=== PATIENT | female | born 1940 | race Two or more races ===

== ENCOUNTER → 2018-06-11 | Outpatient (CLI) | payer MEDICARE, BC | END | disposition home or self-care (01) | LOC: Rad HDHVI 08:40 | PROVIDERS: ATTEND Internal Medicine Cardiovascular Disease | DX: I08.1 Rheumatic disorders of both mitral and tricuspid valves (principal); I65.23 Occlusion and stenosis of bilateral carotid arteries; I10 Essential (primary) hypertension | CPT/HCPCS: 93306; 93880 ==

== ENCOUNTER → 2018-06-25 | Outpatient (CLI) | payer MEDICARE, BC ==
[~2018-06-25] VITALS: Ht 160 cm; Wt 57.6 kg
[~2018-06-25] MED LIST: ADENOSINE 48 MG in GIVE UN-DILUTED 0 ML IV ONE; ADENOSINE 90 MG/30 ML INJ IV ONE
[2018-06-25 12:06] LABS: Basophils # (auto) 0.1 uL; Basophils % (auto) 1.3 % (0.0-2.0); Eosinophils # (auto) 0.1 uL; Eosinophils % (auto) 1.3 % (0.0-7.0); Hematocrit 42.4 % (36.0-46.0); Hemoglobin 14.2 g/dL (12.2-16.2); Lymphocytes # (auto) 1.6 uL; Lymphocytes % (auto) 24.6 % (10.0-50.0); Mean Corpuscular Hgb Conc. 33.5 g/dL (32.0-36.0); Mean Corpuscular Volume 98.3 fL (80.0-100.0); Monocytes # (auto) 0.4 uL; Monocytes % (auto) 6.3 % (0.0-12.0); Neutrophils # (auto) 4.2 uL; Neutrophils % (auto) 66.5 % (37.0-80.0); Nucleated Red Blood Cells % 0.3 %; Platelet Count (auto) 224 10^3/uL (140-450); Red Blood Cells 4.32 10^6/uL (4.0-5.20); White Blood Cell 6.3 10^3/uL (4.4-10.8)
[2018-06-25 12:23] LABS: Urine Blood Negative /uL (Negative); Urine Specific Gravity 1.018 (1.001-1.035)
[2018-06-25 12:32] LABS: Free T4 (Free Thyroxine) 1.24 ng/dL (0.89-1.76)
[2018-06-25 12:36] LABS: Potassium 3.7 mmol/L (3.5-5.1)
[2018-06-25 12:55] LABS: Albumin 4.1 g/dL (3.4-5.0); BUN/Creatinine Ratio 28.9; Bilirubin, Total 0.7 mg/dL (0.2-1.0); Calcium 9.2 mg/dL (8.5-10.1); Total Protein 7.5 g/dL (6.4-8.2)
== END | disposition home or self-care (01) ==
LOC: Rad HDHVI 08:08
PROVIDERS: ATTEND Internal Medicine Cardiovascular Disease
DX: I10 Essential (primary) hypertension (principal); G20 Parkinson's disease; E03.9 Hypothyroidism, unspecified; E11.9 Type 2 diabetes mellitus without complications; E55.9 Vitamin D deficiency, unspecified; D51.9 Vitamin B12 deficiency anemia, unspecified; N39.0 Urinary tract infection, site not specified
CPT/HCPCS: 36415; 78452; 80053; 80061; 81003; 82306; 82607; 83036; 84439; 84443; 85025; 87086; 93005; 96374; 96375; A9500; J0153

== ENCOUNTER → 2019-05-12 | Outpatient (CLI) | payer MEDICARE, BC ==
[2019-05-12 12:01] LABS: Basophils # (auto) 0.1 uL; Basophils % (auto) 1.4 % (0.0-2.0); Eosinophils # (auto) 0.1 uL; Eosinophils % (auto) 2.3 % (0.0-7.0); Hematocrit 43.8 % (36.0-46.0); Hemoglobin 14.6 g/dL (12.2-16.2); Lymphocytes # (auto) 1.5 uL; Mean Corpuscular Hemoglobin 33.2 pg (28.0-32.0); Mean Corpuscular Hgb Conc. 33.4 g/dL (32.0-36.0); Mean Corpuscular Volume 99.4 fL (80.0-100.0); Monocytes # (auto) 0.4 uL; Monocytes % (auto) 7.1 % (0.0-12.0); Neutrophils # (auto) 3.7 uL; Neutrophils % (auto) 63.2 % (37.0-80.0); Nucleated Red Blood Cells % 0.1 %; Platelet Count (auto) 215 10^3/uL (140-450); Red Blood Cells 4.41 10^6/uL (4.0-5.20); Red Cell Distribution Width 14.3 % (11.8-14.3); White Blood Cell 5.8 10^3/uL (4.4-10.8)
[2019-05-12 12:03] LABS: Urine Blood Negative /uL (Negative); Urine Specific Gravity 1.016 (1.001-1.035)
[2019-05-12 12:24] LABS: Potassium 3.6 mmol/L (3.5-5.1)
[2019-05-12 12:30] LABS: Free T4 (Free Thyroxine) 1.33 ng/dL (0.89-1.76)
[2019-05-12 12:32] LABS: Albumin 4.2 g/dL (3.4-5.0); BUN/Creatinine Ratio 21.1; Calcium 9.3 mg/dL (8.5-10.1); Total Protein 7.9 g/dL (6.4-8.2)
== END | disposition home or self-care (01) ==
LOC: LAB 07:55
PROVIDERS: ATTEND Internal Medicine
DX: E03.9 Hypothyroidism, unspecified (principal); K90.9 Intestinal malabsorption, unspecified; D51.9 Vitamin B12 deficiency anemia, unspecified; N39.0 Urinary tract infection, site not specified; Z79.899 Other long term (current) drug therapy
CPT/HCPCS: 36415; 80053; 80061; 81003; 82306; 82607; 83036; 84439; 84443; 85025; 87086

== ENCOUNTER 2019-05-25 13:43 | Inpatient (IN) | payer BC, MEDICARE ==
[~2019-05-25] VITALS: Ht 157.5 cm; Wt 55.0 kg
[2019-05-25 15:04] LABS: Urine Bacteria FEW /hpf (None Seen); Urine Blood Negative /uL (Negative); Urine Mucus FEW (None Seen); Urine Specific Gravity 1.017 (1.001-1.035); Urine WBC 20 /hpf (0 - 5)
[2019-05-25 16:37] LABS: Basophils # (auto) 0 uL; Basophils % (auto) 0.3 % (0.0-2.0); Eosinophils # (auto) 0.1 uL; Eosinophils % (auto) 1.8 % (0.0-7.0); Hematocrit 42.1 % (36.0-46.0); Hemoglobin 14.5 g/dL (12.2-16.2); Lymphocytes # (auto) 0.5 uL; Lymphocytes % (auto) 6.9 % (10.0-50.0); Mean Corpuscular Hemoglobin 33.5 pg (28.0-32.0); Mean Corpuscular Hgb Conc. 34.4 g/dL (32.0-36.0); Mean Corpuscular Volume 97.4 fL (80.0-100.0); Monocytes # (auto) 0.6 uL; Monocytes % (auto) 8.3 % (0.0-12.0); Neutrophils # (auto) 6.4 uL; Neutrophils % (auto) 82.7 % (37.0-80.0); Nucleated Red Blood Cells % 0.1 %; Platelet Count (auto) 156 10^3/uL (140-450); Red Blood Cells 4.32 10^6/uL (4.0-5.20); Red Cell Distribution Width 13.9 % (11.8-14.3); White Blood Cell 7.8 10^3/uL (4.4-10.8)
[2019-05-25 16:57] LABS: Albumin 4.2 g/dL (3.4-5.0); Anion Gap 10 (5-15); Blood Urea Nitrogen 20 mg/dL (7-18); Calcium 9.1 mg/dL (8.5-10.1); Carbon Dioxide 23 mmol/L (21-32); Chloride 108 mmol/L (98-107); Glucose 157 mg/dL (74-106); Magnesium 2.1 mg/dL (1.6-2.6); Potassium 4.3 mmol/L (3.5-5.1); Sodium 141 mmol/L (136-145)
[2019-05-25 17:02] LABS: Alanine Aminotransferase 18 U/L (13-56); Alkaline Phosphatase 69 U/L (45-117); Aspartate Aminotransferase 20 U/L (15-37); BUN/Creatinine Ratio 15.2; Bilirubin, Total 0.8 mg/dL (0.2-1.0); GFR African American 50 mL/min; GFR Non-African American 41 mL/min; Total Protein 8.1 g/dL (6.4-8.2)
[2019-05-25] MEDS ORDERED: ACETAMINOPHEN 650 MG RECT SUPP PR ONE ×2 (17:26→17:30)
[2019-05-25] MEDS ORDERED: SODIUM CHLORIDE 0.9% 1,000 ML IV ONE ×3 (17:30→18:00)
[2019-05-25] MEDS ORDERED: LEVOFLOXACIN 500MG 100 ML IV ONE (17:30)
[2019-05-25 17:34] LABS: Lactic Acid w/Reflex 2.1 mmol/L (0.4-2.0)
[2019-05-25] MEDS ORDERED: NITROGLYCERIN 0.4 MG SL TAB SL PRN (19:45)
[2019-05-25] MEDS ORDERED: ACETAMINOPHEN 500 MG TAB PO PRN (19:45)
[2019-05-25] MEDS ORDERED: HYDROcodone-ACET 5/325MG TAB PO PRN (19:45)
[2019-05-25] MEDS ORDERED: ONDANSETRON HCL 4 MG/2 ML VIAL IV PRN (19:45)
[2019-05-25] MEDS ORDERED: MORPHINE SULF INJ 2 MG/ML SYRINGE 1ML IV PRN ×2 (19:45)
[2019-05-25] MEDS: SODIUM CHLORIDE 0.9% 1,000 ML IV SCH (20:56)
[2019-05-25 21:10] VITALS: BP 114/58
--- NOTE | 2019-05-25 21:10 | NUR ---
Family stated they will bring patients home medications tomorrow morning.
--- NOTE | 2019-05-25 21:20 | NUR ---
MS admit from ER MATTY VALDEZ admitted to tele/MS after SBAR received. Patient oriented to Elayne Wynne, primary RN, unit, room, bed, and unit policies regarding patient care and visiting hours. Patient weighed by bed scale and encouraged to call if they need something. Family at bedside. All questions and concerns addressed. Personal belongings home with family. No s/sx of distress, sob or pain. Will continue to monitor q1h and prn.
[2019-05-25] MEDS: CARBIDOPA W LEVODOPA 10/100mg TABLET PO SCH (22:43)
[2019-05-26] VITALS (7 sets, daily range): BP systolic 106–156; BP diastolic 53–71
[2019-05-26] MEDS: SODIUM CHLORIDE 0.9% 1,000 ML IV SCH (05:16)
[2019-05-26 05:36] LABS: Basophils # (auto) 0 uL; Basophils % (auto) 0.3 % (0.0-2.0); Eosinophils # (auto) 0.2 uL; Eosinophils % (auto) 1.5 % (0.0-7.0); Hematocrit 36.2 % (36.0-46.0); Hemoglobin 12.5 g/dL (12.2-16.2); Lymphocytes # (auto) 0.6 uL; Lymphocytes % (auto) 5.4 % (10.0-50.0); Mean Corpuscular Hemoglobin 33.4 pg (28.0-32.0); Mean Corpuscular Hgb Conc. 34.4 g/dL (32.0-36.0); Monocytes # (auto) 0.8 uL; Neutrophils # (auto) 9.7 uL; Neutrophils % (auto) 85.8 % (37.0-80.0); Nucleated Red Blood Cells % 0.1 %; Platelet Count (auto) 129 10^3/uL (140-450); Red Blood Cells 3.73 10^6/uL (4.0-5.20); Red Cell Distribution Width 13.9 % (11.8-14.3); White Blood Cell 11.3 10^3/uL (4.4-10.8)
[2019-05-26 06:07] LABS: Potassium 3.5 mmol/L (3.5-5.1)
[2019-05-26 06:10] LABS: BUN/Creatinine Ratio 16.5
[2019-05-26] MEDS: CARBIDOPA W LEVODOPA 10/100mg TABLET PO SCH ×3 (06:36→21:27)
--- NOTE | 2019-05-26 07:16 | NUR ---
ENDORSED PATIENT CARE TO DAY SHIFT NURSE CHRISTAL ACOSTA. NO S/SX OF DISTRESS OR SOB.
[2019-05-26] MEDS ORDERED: cefTRIAXone 1GM/50ML D5W 50 ML IV SCH (09:00)
[2019-05-26] MEDS: amLODIPine BESYLATE 5 MG TAB PO SCH (10:00)
[2019-05-26] MEDS ORDERED: LEVOFLOXACIN 250MG 50 ML IV SCH (10:00)
[2019-05-26] MEDS: FAMOTIDINE 20 MG TAB PO SCH (10:06)
[2019-05-26] MEDS: SODIUM CHLOR 0.9% PF (SALINE LOCK) 10ML VIAL/SYR IV SCH ×2 (14:24→21:26)
--- NOTE | 2019-05-26 19:15 | NUR ---
OPENING NOTE- NOC SHIFT PATIENT IS IN BED, ALERTED X 1; TO SELF. PATIENT PULLING ON LINES AND UNDRESSING HERSELF. ATTEMPTED TO RE ORIENT PATIENT. PATIENT STATES THAT SHE IS "TIRED FROM CLIMBING ALL OF THOSE ROCKS" AND IS CALLING OUT FOR HER . PATIENT IS CLOSE TO NURSE STATION. BED ALARM ON. WILL CONTINUE TO MONITOR FOR NEED OF BEDSIDE NURSE DESIGN SALES CONSULTANT. BED IS LOCKED IN LOWEST POSITION. FALL PRECAUTIONS IN PLACE. NO S/SX OF SOB OR PAIN.
--- NOTE | 2019-05-26 23:45 | NUR ---
PULLED OUT IV PATIENT PULLED OUT IV TO LEFT HAND. CATHETER OUT COMPLETE AND INTACT. APPLIED PRESSURE TO SITE AND SECURED WITH COBAN. WILL REQUEST CHARGE NURSE TO ASSIGN NURSE OFFSHORE DIVER TO REMAIN AT BEDSIDE FOR SAFETY PRECAUTIONS.
--- NOTE | 2019-05-26 23:50 | NUR ---
NURSE ADVANCED NURSING PROFESSOR AT BEDSIDE PROVIDED NURSE ADVANCED NURSING PROFESSOR TO REMAIN WITH PATIENT AT BEDSIDE. PATIENT CONTINUES TO PRESENT WITH CONFUSION WANTING TO GET OUT OF BED AND PULLING ON REMAINING IV ACCESS LINE.
[2019-05-27] VITALS (7 sets, daily range): BP systolic 105–142; BP diastolic 51–75
--- NOTE | 2019-05-27 05:20 | NUR ---
BED BATH COMPLETED BY NURSE BOW MAKING MACHINE OPERATOR; PATIENT TOLERATED WELL.
--- NOTE | 2019-05-27 05:42 | NUR ---
BED LINEN CHANGE. PROVIDED PATIENT WITH CLEAN GOWN. Z GUARD APPLIED TO SACRAL AREA AND BACK FOR SAFETY PRECAUTIONS. SKIN INTACT.
[2019-05-27 06:08] LABS: Basophils # (auto) 0 uL; Basophils % (auto) 0.7 % (0.0-2.0); Eosinophils # (auto) 0.3 uL; Eosinophils % (auto) 3.6 % (0.0-7.0); Hematocrit 37.7 % (36.0-46.0); Hemoglobin 13.1 g/dL (12.2-16.2); Lymphocytes # (auto) 1.2 uL; Lymphocytes % (auto) 17.5 % (10.0-50.0); Mean Corpuscular Hemoglobin 33.5 pg (28.0-32.0); Mean Corpuscular Hgb Conc. 34.6 g/dL (32.0-36.0); Mean Corpuscular Volume 96.7 fL (80.0-100.0); Monocytes # (auto) 0.5 uL; Monocytes % (auto) 6.8 % (0.0-12.0); Neutrophils % (auto) 71.4 % (37.0-80.0); Platelet Count (auto) 130 10^3/uL (140-450); Red Cell Distribution Width 13.7 % (11.8-14.3); White Blood Cell 6.9 10^3/uL (4.4-10.8)
[2019-05-27] MEDS: SODIUM CHLOR 0.9% PF (SALINE LOCK) 10ML VIAL/SYR IV SCH ×3 (06:30→22:27)
[2019-05-27] MEDS: CARBIDOPA W LEVODOPA 10/100mg TABLET PO SCH ×3 (06:31→22:27)
[2019-05-27 06:47] LABS: BUN/Creatinine Ratio 22.8; Calcium 8.2 mg/dL (8.5-10.1); Potassium 3.2 mmol/L (3.5-5.1)
--- NOTE | 2019-05-27 07:11 | NUR ---
CLOSING NOTE- NOC SHIFT ENDORSED PATIENT CARE TO DAY SHIFT NURSE CHRISTAL ACOSTA. PATIENT IS IN BED. NO S/SX OF DISTRESS, SOB OR PAIN. NURSE BOARD LAYER AT BEDSIDE FOR SAFETY PRECAUTIONS.
[2019-05-27] MEDS: amLODIPine BESYLATE 5 MG TAB PO SCH (09:28)
[2019-05-27] MEDS: FAMOTIDINE 20 MG TAB PO SCH (09:42)
[2019-05-27] MEDS ORDERED: POTASSIUM EFFERVESENT TAB 25 MEQ PO ONE (09:45)
[2019-05-27] MEDS ORDERED: LEVOFLOXACIN 500MG 100 ML IV SCH (10:00)
--- NOTE | 2019-05-27 15:55 | NUR ---
Discharge planning per SS consult, patient has orders for home health safety eval and transportation. Upon encounter to present choice letter, patient's and two sons were at bedside. had no preference, referral was sent to [facility];placed a follow up call, spoke with Ann and was advised that they will accept this patient onto services and start of care will be within 24-48 hours upon dc. Family was advised. Family was also advised that it may be a possibility that insurance may not cover a hospital bed as the was requesting one for convenience but could be provided with options for private pay. Regarding transportation, patient is not physically stable for a taxi voucher, and does not qualify for transportation via [employer] for Medicare, however family was provided with options for private pay with a non-emergent transportation company. At this time family is declining resources for the bed and transportation. Nurse Churchill was advised of dc plan.
--- NOTE | 2019-05-27 16:05 | NUR ---
Assessment Pt is an 79 yr old disoriented and confused pt. Pt's , Keshawn, answered question on pt's behalf and is her emergency contact at [phone]. Prior to admit, pt lived alone with her . Prior to admit, pt was ambulatory and functioned independently with her ADL's. Keshawn stated that pt's functioning has been decreasing and that she will probably need HH for nursing services and a hospital bed. SW talked to pt's nurse about possible needs. Keshawn requested assistance with medical transportation but SW informed pt that their insurance won't cover the cost and it would be out of pocket expense. Pt stated that they would be have family members that could help out with transportation. Pt's heart Dr is Hardy. Pt is currently waiting for tests results back for her heart. Pt's Primary is Dr Velasco. Pt's stated that pt is full code and has a living will at home but not here on file. Further needs will be assessed closer to d/c. Pt's hopes to d/c home upon medical clearance. Addendum: 05/27/19 at 1613 by DAPHNIE DEJESUS Amended: Links added.
--- NOTE | 2019-05-27 19:15 | NUR ---
OPENING NOTE- NOC SHIFT PATIENT IS CONFUSED AND ALERT ONLY TO HER NAME. SITTER AT BEDSIDE PER MD ORDERS FOR SAFETY PRECAUTIONS. BED RAILS UP X 2 AND HEAD OF BED IS UP >30 DEGREES. BED IS LOCKED IN LOWEST POSITION. NO S/SX OF DISTRESS, SOB OR PAIN. WILL CONTINUE TO MONITOR Q1H AND PRN.
[2019-05-28] VITALS (7 sets, daily range): BP systolic 118–138; BP diastolic 58–98
[2019-05-28 05:32] LABS: Basophils # (auto) 0.1 uL; Basophils % (auto) 1.1 % (0.0-2.0); Eosinophils # (auto) 0.3 uL; Eosinophils % (auto) 4.5 % (0.0-7.0); Hematocrit 41.7 % (36.0-46.0); Hemoglobin 14.3 g/dL (12.2-16.2); Lymphocytes # (auto) 1.7 uL; Lymphocytes % (auto) 28.8 % (10.0-50.0); Mean Corpuscular Hemoglobin 33.3 pg (28.0-32.0); Mean Corpuscular Hgb Conc. 34.3 g/dL (32.0-36.0); Mean Corpuscular Volume 97.2 fL (80.0-100.0); Monocytes # (auto) 0.6 uL; Monocytes % (auto) 10.1 % (0.0-12.0); Neutrophils # (auto) 3.2 uL; Neutrophils % (auto) 55.5 % (37.0-80.0); Nucleated Red Blood Cells % 0.1 %; Platelet Count (auto) 153 10^3/uL (140-450); Red Blood Cells 4.29 10^6/uL (4.0-5.20); Red Cell Distribution Width 13.5 % (11.8-14.3); White Blood Cell 5.8 10^3/uL (4.4-10.8)
[2019-05-28 05:59] LABS: Albumin 3.2 g/dL (3.4-5.0); Calcium 8.6 mg/dL (8.5-10.1); Potassium 3.7 mmol/L (3.5-5.1)
--- NOTE | 2019-05-28 06:00 | NUR ---
RING TAPED PATIENT HAD SLIPPED OUT HER RING FROM FIDGETING WITH HER HANDS. RING WAS ON PATIENT BED. TAPED RING TO PATIENT'S FINGER BECAUSE SHE WAS IN DISTRESS ABOUT NOT HAVING IT ON. WILL ENDORSE TO DAY SHIFT NURSE TO HAVE FAMILY TAKE IT HOME IF POSSIBLE.
[2019-05-28 06:02] LABS: BUN/Creatinine Ratio 26.7; Bilirubin, Total 0.8 mg/dL (0.2-1.0); Total Protein 6.9 g/dL (6.4-8.2)
--- NOTE | 2019-05-28 06:30 | NUR ---
BOWEL MOVEMENT SCANT AMOUNT SMEAR. PARTIAL LINEN CHANGE. GOWN CHANGE. PATIENT IS COMFORTABLE IN BED.
[2019-05-28] MEDS: CARBIDOPA W LEVODOPA 10/100mg TABLET PO SCH ×3 (06:37→21:47)
[2019-05-28] MEDS: SODIUM CHLOR 0.9% PF (SALINE LOCK) 10ML VIAL/SYR IV SCH ×3 (06:37→21:47)
[2019-05-28] MEDS: FAMOTIDINE 20 MG TAB PO SCH (09:31)
[2019-05-28] MEDS: amLODIPine BESYLATE 5 MG TAB PO SCH (09:32)
[2019-05-28] MEDS ORDERED: LEVOFLOXACIN 250MG 50 ML IV SCH (10:00)
[2019-05-28] MEDS: SODIUM CHLORIDE 0.9% 1,000 ML IV SCH ×2 (11:49→18:21)
--- NOTE | 2019-05-28 19:50 | NUR ---
Opening Shift Note Assumed care of patient, resting in bed with eyes closed, patient wakes to name, oriented x 3, reoriented to time. On room air with even and unlabored respirations, no S/S of distress or SOB. Brar intact and draining to gravity with yellow urine, no kinks. Patient turned with moderate assistance, sacrum intact, no redness noted. SCD's on to bilateral legs with machine on. Bed in low locked position with side rails up x 2 and call light within reach, sitter at bedside. Instructed on POC and to call for assist PRN, will continue to monitor for changes Q1hr and PRN.
--- NOTE | 2019-05-28 23:45 | NUR ---
IV insertion IV access obtained, via clean sterile technique by inserting 22 gauge catheter at right forearm after 2 attempt(s). IV secured properly. No trauma to site. Patient tolerated well. NOTE: IV to right wrist leaking. IV DC'd with clean sterile technique, catheter fully intact. Pressure dressing applied to site. Patient tolerated well.
[2019-05-29] MEDS: SODIUM CHLORIDE 0.9% 1,000 ML IV SCH ×4 (01:55→21:46)
[2019-05-29 05:00] VITALS: BP 125/70
[2019-05-29] MEDS: SODIUM CHLOR 0.9% PF (SALINE LOCK) 10ML VIAL/SYR IV SCH ×3 (05:46→21:46)
[2019-05-29] MEDS: CARBIDOPA W LEVODOPA 10/100mg TABLET PO SCH ×3 (05:46→21:46)
--- NOTE | 2019-05-29 06:55 | NUR ---
Closing Note patient resting in bed with even and unlabored respirations, no s/s of distress. Sitter at bedside. Endorsed care to day shift KARLA Churchill.
[2019-05-29 08:00] VITALS: BP 125/70
--- NOTE | 2019-05-29 08:01 | NUR ---
PATIENT ALERT TIMES 2. COOPERATIVE. NONLABORED RESPIRATIONS. PATIENT AMBULATED ON 05/28/2019 WITH PT
[2019-05-29 09:00] VITALS: BP 149/66
[2019-05-29] MEDS: LEVOFLOXACIN 250 MG TAB PO SCH (09:36)
[2019-05-29] MEDS: FAMOTIDINE 20 MG TAB PO SCH (09:37)
[2019-05-29] MEDS: amLODIPine BESYLATE 5 MG TAB PO SCH (09:37)
--- NOTE | 2019-05-29 12:40 | NUR ---
Nutrition Assessment Notes please see attached link for complete assessment Est. Needs BW 58 [id number] kcal (25-30 kcal/kgBW), 58-69 gms pro (1.0-1.2 gms/kgBW). Will continue to monitor pertinent labs and reassess nutrient need prn Addendum: 05/29/19 at [address] Amended: Links added.
[2019-05-29 13:00] VITALS: BP 118/55
[2019-05-29 17:00] VITALS: BP 129/60
--- NOTE | 2019-05-29 19:33 | NUR ---
OPENING SHIFT NOTE Assumed care of patient, awake and alert/oriented X3, sitting up in bed with at bed side. Respirations even and unlabored. No S/S of distress noted. Denies pain at this moment. Discussed POC and to call for assistance as needed. Patient verbalizes understanding. Bed in lowest position, breaks locked, side rails up x2, call light with in reach. Sitter at bed side. Will continue to monitor Q1hr and PRN.
--- NOTE | 2019-05-29 20:05 | NUR ---
PATIENT FOUND CRYING. PATIENTS STATES SHE IS CRYING BECAUSE SHE DOES NOT WANT HIM TO LEAVE. PATIENT COMFORTED AND POLICY REGARDING VISITING HOURS EXPLAINED, PATIENT AND VERBALIZE UNDERSTANDING. PATIENTS ALLOWED TO STAY FEW MIN LONGER.
[2019-05-29 22:00] VITALS: BP 141/67
--- NOTE | 2019-05-30 00:44 | NUR ---
ROUNDS PATIENT RESTING IN BED COMFORTABLY, WITH EVEN AND UNLABORED RESPIRATIONS, NO S/S OF DISTRESS NOTED. SITTER AT BED SIDE, WILL CONTINUE TO MONITOR.
[2019-05-30 04:53] VITALS: BP 125/71
[2019-05-30] MEDS: SODIUM CHLOR 0.9% PF (SALINE LOCK) 10ML VIAL/SYR IV SCH ×2 (05:48→14:00)
[2019-05-30] MEDS: SODIUM CHLORIDE 0.9% 1,000 ML IV SCH ×2 (05:48→10:25)
[2019-05-30] MEDS: CARBIDOPA W LEVODOPA 10/100mg TABLET PO SCH ×2 (05:48→15:35)
--- NOTE | 2019-05-30 07:37 | NUR ---
CARE ENDORSED TO DAY SHIFT ERIC ACOSTA
--- NOTE | 2019-05-30 08:00 | NUR ---
Morning note Assumed care of patient, awake and alert sitting up in bed eating breakfast. Respiration even and unlabored. No S/S of distress noted. Discussed POC and to call for assistance as needed. Brar bag hanging freely no kinks noted. Fall precautions in place. Bed in lowest position, breaks locked, side rails up x2, call light with in reach. Will continue to monitor Q1hr and PRN.
[2019-05-30 09:00] VITALS: BP 138/67
[2019-05-30] MEDS: FAMOTIDINE 20 MG TAB PO SCH (10:00)
[2019-05-30] MEDS: amLODIPine BESYLATE 5 MG TAB PO SCH (10:00)
[2019-05-30] MEDS: LEVOFLOXACIN 250 MG TAB PO SCH (10:00)
--- NOTE | 2019-05-30 10:50 | NUR ---
Doctor rounding. Doctor Agrawal at bedside. Per MD patient cleared for discharge.
--- NOTE | 2019-05-30 11:52 | NUR ---
Discharge panning per consult, patient has orders to dc with home health. Referral sent previously, and [facility] has accepted the patient and start of care will be within 24-48 hours upon discharge. Will advise [facility] that patient is discharging today. Addendum: 05/30/19 at 1201 by HE MARQUEZ Amended: Links added.
--- NOTE | 2019-05-30 12:10 | NUR ---
Cespedes catheter dc'd Order to discontinue cespedes catheter. Cespedes dc'd with clean technique following deflation of balloon. Patient tolerated well with no complaints of pain. Continue care.
--- NOTE | 2019-05-30 16:09 | NUR ---
Discharge instructions given as ordered. Encourage to follow up with PMD as instructed. All questions and concerns addressed. Patient verbalized understanding. Medication reconciliation form completed and copy given to patient. No home medications held in Pharmacy and none returned to patient, and no needed vaccines given. IV removed with catheter intact, pressure dressing applied. Patient taken to vehicle via wheelchair with all personal belongings, accompanied by staff and family member.Respiration even and unlabored, No distress noted at time of departure.
== END 2019-05-30 16:10 | disposition home health service (06) | DRG 871 ==
LOC: EDBD 13:43 → ER 13:43 → OVERFLOW 13:44 → WEST WING 21:03
PROVIDERS: ADMIT Nurse Practitioner Acute Care; ATTEND Family Medicine
DX: A41.9 Sepsis, unspecified organism (principal); N17.0 Acute kidney failure with tubular necrosis; G92 Toxic encephalopathy; N30.00 Acute cystitis without hematuria; N18.3 Chronic kidney disease, stage 3 (moderate); I12.9 Hypertensive chronic kidney disease with stage 1 through stage 4 chronic kidney disease, or unspecified chronic kidney disease; E87.6 Hypokalemia; E78.5 Hyperlipidemia, unspecified; G20 Parkinson's disease; M19.90 Unspecified osteoarthritis, unspecified site; Z96.653 Presence of artificial knee joint, bilateral; S40.012A Contusion of left shoulder, initial encounter; S70.02XA Contusion of left hip, initial encounter; B96.20 Unspecified Escherichia coli [E. coli] as the cause of diseases classified elsewhere; W01.0XXA Fall on same level from slipping, tripping and stumbling without subsequent striking against object, initial encounter; Y93.89 Activity, other specified; Y92.098 Other place in other non-institutional residence as the place of occurrence of the external cause; Z90.710 Acquired absence of both cervix and uterus; Y99.8 Other external cause status; Z88.1 Allergy status to other antibiotic agents
CPT/HCPCS: 36415; 70450; 73030; 73501; 80048; 80053; 81001; 82962; 83605; 83735; 84443; 84484; 85025; 87040; 87086; 87088; 87186; 93005; 94761; 96365; 97116; 97163; 97530; 99291; G0378; J1956

== ENCOUNTER → 2019-06-06 | Outpatient (CLI) | payer MEDICARE ==
[2019-06-06 15:18] LABS: Urine Blood Negative /uL (Negative); Urine Specific Gravity 1.017 (1.001-1.035)
== END | disposition home or self-care (01) ==
LOC: LAB 10:50
PROVIDERS: ATTEND Internal Medicine
DX: N39.0 Urinary tract infection, site not specified (principal)
CPT/HCPCS: 81003; 87086